=== PATIENT | female | born 1950 | race Caucasian/White ===

== ENCOUNTER 2021-11-14 20:15 | Emergency (ER) | payer OTHER ==
[~2021-11-14] VITALS: Ht 165.1 cm; Wt 90.7 kg
[2021-11-14] MEDS ORDERED: HYDROCODONE/APAP 10MG-325MG TAB PO STA (20:26)
[2021-11-14] MEDS ORDERED: HYDROCODONE/APAP 10MG-325MG TAB ONE (20:56)
[2021-11-14] MEDS ORDERED: ACETAMINOPHEN-1 EAC4 PO (22:36)
[2021-11-14] MEDS ORDERED: Morphine 4mg Syringe 4 MG/ML INJ IM ONE (22:45)
[2021-11-14] MEDS ORDERED: ULTRAM50 MG PO (23:23)
[2021-11-15 02:16] VITALS: BP 144/81
== END 2021-11-15 | disposition home or self-care (01) ==
LOC: ER 20:27
DX: S42.301A Unspecified fracture of shaft of humerus, right arm, initial encounter for closed fracture (principal); M25.571 Pain in right ankle and joints of right foot; W01.10XA Fall on same level from slipping, tripping and stumbling with subsequent striking against unspecified object, initial encounter; Z88.6 Allergy status to analgesic agent; Z88.0 Allergy status to penicillin; Z88.8 Allergy status to other drugs, medicaments and biological substances
CPT/HCPCS: 99283; J2270